=== PATIENT | male | born 1935 | race Hispanic/Latino ===

== ENCOUNTER → 2017-10-26 | Outpatient (CLI) | payer MEDICARE ==
[~2017-10-26] MED LIST: AMLODIPINE BESYL5 MG PO; ANTACID325 MG PO; ASA81 MG PO; ATENOLOL50 MG PO; CHOLESTYRAMINE P4 GM PO; FUROSEMIDE40 MG PO; GLIPIZIDE PO; GLIPIZIDE10 MG PO; HUMALOG100 UNIT/1 SQ; HUMALOG100 UNITS/ SQ; LANTUS100 UNITS/ SC; LANTUS100 UNITS/ SQ; LEVAQUIN250 MG PO; LEVOTHYROXINE150 MCG PO; LOVASTATIN40 MG PO; NORVASC5 MG PO; PANTOPRAZOLE SO40 MG PO; SERTRALINE HCL25 MG PO; SODIUM BICARBO650 MG PO; SODIUM BICARBONATE PO; VITAMIN D PO; VOTRIENT200 MG PO; Z TIROSINT PO; Z.0.ATENOLOL50 MG PO; Z.0.BENICAR40 MG PO; Z.0.CRESTOR10 MG PO; Z.0.GLIPIZIDE10 MG PO; Z.0.LANTUS100 UNIT/1; Z.0.NORVASC5 MG PO; Z.0.PANTOPRAZOLE SO4 PO; Z.0.ZOLOFT25 MG PO; Z.1.HUMALOG100 UNIT/; ZOLOFT50 MG PO
--- NOTE | 2017-10-26 15:51 | Diagnostic Imaging Report ---
PROCEDURE: X-RAY CHEST, TWO VIEWS COMPARISON: Chest x-ray 10/10/16, CT chest 05/14/17, chest x-ray 10/06/16 INDICATIONS: LUNG CANCER FINDINGS: LUNGS: Diffusely hyperinflated. Mass in the posterior lower lobe is similar in morphology. No new masses have developed. PLEURA: Calcified pleural plaques are stable. There is blunting of the posterior costophrenic angles consistent with loculated pleural effusions and pleural thickening. HEART \T\ MEDIASTINUM: The heart is normal in size. Aortic ectasia is stable. Calcified hilar lymph nodes are stable. BONES \T\ SOFT TISSUES: Diffusely demineralized. There are degenerative changes of the spine consistent with age. There is no focal osseous lesions. CONCLUSION: Pleural thickening and calcifications are stable. Loculated effusions and pleural thickening in the posterior costophrenic angles are stable. Stable left lower lobe mass. No new cardiopulmonary findings by x-ray. Dictated by: Ana Sandra M.D. on 10/26/2017 at 15:58 Electronically approved by: Ana Sandra M.D. on 10/26/2017 at 15:58
== END ==
LOC: RAD 14:45
PROVIDERS: ATTEND Internal Medicine Pulmonary Disease
DX: Z85.118 Personal history of other malignant neoplasm of bronchus and lung (principal)
CPT/HCPCS: 71020